=== PATIENT | female | born 1970 | race Two or more races ===

== ENCOUNTER 2016-09-07 13:19 | Emergency (ER) | payer OTHER ==
[2016-09-07 13:53] VITALS: BP 109/66; PULSE 77; RESP 16; TEMP 98.2; O2SAT 98
[2016-09-07 14:21] LABS: COLOR ORANGE; LEUKOCYTE ESTERASE,URINE TRACE (NEGATIVE); NITRITE,URINE POSITIVE (NEGATIVE)
[2016-09-07 14:31] LABS: BACTERIA TRACE /hpf (NONE SEEN); RENAL EPITHELIAL CELLS OCCASIONAL /hpf (NONE SEEN); WBC,URINE 0-1 /hpf (0-3)
--- NOTE | 2016-09-07 15:04 | UCPHY ---
H & P Time Seen by Provider: 09/07/16 15:04 Patient Type: New HPI/ROS: HPI: 45-year-old female presents to urgent care with chief concern urinary burning or frequency. Symptoms initially onset 1 week ago. Worsened significantly last night. Reports subjective fever. Denies chills, myalgias, back or flank pain nausea or vomiting, or hematuria. Has used Pyridium over-the -counter, as well as cranberry juice with some improvement. ROS:10 point review of systems is negative other than as stated in HPI Smoking Status: Never smoked Physical Exam: Temp 36.8, heart rate 77, respiratory rate 16, blood pressure 109/66, 98% on room air Head: Normalocephalic HEENT: Unremarkable. Atraumatic. PEERLA/EOMI. Neck: Supple, nontender, no lymphadenopathy Resp: Lungs CTA bilaterally. Breath sounds equal bilaterally. CV: HRR. S1S2. No MRG. ABD: Soft, nontender. Bowel sounds normoactive x 4 quadrants. : No CVA or flank tenderness. Extremities: Full ROM all extremities Neuro: Alert, oriented x 3. No focal deficits. Mental Status: Interactive, appropriate, well-groomed. Constitutional: Initial Vital Signs Temperature (C) 36.8 C 09/07/16 13:51 Heart Rate 77 09/07/16 13:51 Respiratory Rate 16 09/07/16 13:51 Blood Pressure 109/66 09/07/16 13:51 O2 Sat (%) 98 09/07/16 13:51 O2 Delivery Mode Room Air Allergies/Adverse Reactions: Sulfa (Sulfonamide Antibiotics) Allergy (Verified 09/07/16 13:50) Home Medications: Medication Instructions Recorded Effexor 09/07/16 Nitrofurantoin Monohyd/M-Cryst 100 mg PO BID #14 capsule 09/07/16 [Macrobid 100 mg Capsule] Medical Decision Making ED Course/Re-evaluation: Nontoxic afebrile 45-year-old presents to urgent care with dysuria. Urinalysis reveals nitrates and esterase. Urine cultures pending. She states that Macrobid has worked for her in the past for UTIs. She is prescribed 1 week twice daily Macrobid with strict instructions to return for recheck should symptoms worsen in any way. She has been counseled regarding symptoms for which to return. Differential Diagnosis: Cystitis versus pyelonephritis - Data Points Laboratory Results: 09/07/16 14:00 Urine Color ORANGE Urine Appearance HAZY Urine pH 5.0 (5.0-7.5) Ur Specific [place] <= 1.005 (1.002-1.030) Urine Protein 1+ H (NEGATIVE) Urine Ketones TRACE H (NEGATIVE) Urine Blood NEGATIVE (NEGATIVE) Urine Nitrate POSITIVE H (NEGATIVE) Urine Bilirubin NEGATIVE (NEGATIVE) Urine Urobilinogen 4.0 H EU (0.2-1.0) Ur Leukocyte Esterase TRACE H (NEGATIVE) Urine RBC 1-3 /hpf (0-3) Urine WBC 0-1 /hpf (0-3) Ur Epithelial Cells TRACE /lpf (NONE-1+) Ur Renal Epithelial Cell OCCASIONAL H /hpf (NONE SEEN) Urine Bacteria TRACE H /hpf (NONE SEEN) Urine Glucose TRACE H (NEGATIVE) Departure - Departure Disposition: Home, Routine, Self-Care Clinical Impression: Urinary tract infection Qualifiers: Urinary tract infection type: acute cystitis Condition: Good Instructions: Urinary Tract Infection in Women (ED) Additional Instructions: Plan: You have a urinary tract infection. Drink plenty of fluids. Take the Macrobid antibiotic twice daily for 1 week. Urostat or Azo-Standard available [id number] as needed for bladder spasm and pain Return if high fever, flank pain, nausea or vomiting, or feeling worse. Return if no improvement in symptoms in 48 hours. follow up with primary care next week Prescriptions: Nitrofurantoin Monohyd/M-Cryst [Macrobid 100 mg Capsule] 100 mg PO BID #14 capsule - PQRS PQRS Measurement: Not applicable
== END 2016-09-07 15:20 | disposition home or self-care (01) ==
LOC: CED 13:19
DX: N39.0 Urinary tract infection, site not specified (principal); Z88.2 Allergy status to sulfonamides
CPT/HCPCS: 81003-PO; 81015-PO; 99203-PO; G0463-PO

== ENCOUNTER 2017-06-10 08:18 | Observation (INO) | payer OTHER ==
[2017-06-10] MEDS ORDERED: ACETAMINOPHEN 500 MG TAB PO ONE (08:53)
[2017-06-10] MEDS ORDERED: THROMBIN (BOVINE) 5,000 UNIT VIAL TP ONE (08:53)
[2017-06-10] MEDS ORDERED: BUPIVACAINE 0.25% 30 ML SDV ONE (08:53)
[2017-06-10] MEDS ORDERED: ceFAZolin 2 GM/DEXTROSE 100 ML IV ONE (08:53)
[2017-06-10] MEDS ORDERED: GABAPENTIN 300 MG CAP PO ONE (08:53)
[2017-06-10] MEDS ORDERED: BACITRACIN 50,000 UNITS/10 ML SYR IRR ONE (08:54)
[2017-06-10] MEDS ORDERED: LR 1,000 ML IV ONE (08:54)
--- NOTE | 2017-06-10 09:33 | PDHPUP ---
History & Physical Update H&P update statement: This history and physical update is based on an assessment of the patient which was completed after admission or registration (within 24 hours), but prior to the surgery/procedure. H&P update: H&P reviewed & patient examined, no change in patient's condition since H&P completed (Consents signed and site marked. All questions answered.)
[2017-06-10 09:42] LABS: % IMMATURE GRANULYOCYTES 0.9 % (0.0-1.1); ABSOLUTE IMMATURE GRANULOCYTES 0.06 10^3/uL (0.00-0.10); ADD DIFF? NO; ADD MORPH? NO; ADD SCAN? NO; ATYPICAL LYMPHOCYTE FLAG 0 (0-99); FRAGMENT RBC FLAG 0 (0-99); HEMATOCRIT 43.6 % (38.0-47.0); HEMOGLOBIN 14.7 g/dL (12.6-16.3); LEFT SHIFT FLG 0 (0-99); LIPEMIA HEMOLYSIS FLAG 80 (0-99); MEAN CELL HEMOGLOBIN 30.9 pg (27.9-34.1); MEAN CELL HEMOGLOBIN CONCENTR. 33.7 g/dL (32.4-36.7); MEAN CELL VOLUME 91.6 fL (81.5-99.8); PLATELET CLUMPS FLAG 0 (0-99); PLATELET COUNT 170 10^3/uL (150-400); RED BLOOD CELL COUNT 4.76 10^6/uL (4.18-5.33); RED CELL DISTRIBUTION WIDTH 12.4 % (11.5-15.2)
[2017-06-10] MEDS ORDERED: MIDAZOLAM 2 MG/2 ML VIAL ONE (09:50)
[2017-06-10] MEDS ORDERED: SCOPOLAMINE HYDROBROMIDE 1 MG/3 DAYS PATCH TD ONE (10:00)
--- NOTE | 2017-06-10 10:06 | PDANEPAE ---
ANE History of Present Illness ACD and F 5-7 ANE Past Medical History - Cardiovascular History Hx Hypertension: No Hx Arrhythmias: No Hx Chest Pain: No Hx Coronary Artery / Peripheral Vascular Disease: No Hx CHF / Valvular Disease: No Hx Palpitations: No - Pulmonary History Hx COPD: No Hx Asthma/Reactive Airway Disease: No Hx Recent Upper Respiratory Infection: No Hx Oxygen in Use at Home: No Hx Sleep Apnea: No Sleep Apnea Screening Result - Last Documented: Negative - Neurologic History Hx Cerebrovascular Accident: No Hx Seizures: No Hx Dementia: No Neurologic History Comment: [facility] 2001. numbness and tingling to bilateral legs - Endocrine History Hx Diabetes: No Hypothyroid: No Hyperthyroid: No Obesity: no - Renal History Hx Renal Disorders: No - Liver History Hx Hepatic Disorders: No - Neurological & Psychiatric Hx Hx Neurological and Psychiatric Disorders: No Neurological / Psychiatric History Comment: hx of situational depression- doing well now - Cancer History Hx Cancer: No - Congenital Disorder History Hx Congenital Disorders: No - GI History Hx Gastrointestinal Disorders: No - Other Health History Other Health History: bruises easily - Chronic Pain History Chronic Pain: Yes (low back pain) - Surgical History Prior Surgeries: hysterectomy 2004/2005ish. bilateral carpal tunnel 2008 & 2016 ANE Review of Systems Review of Systems: - Exercise capacity METS (RN): 4 METS ANE Patient History - Allergies Allergies/Adverse Reactions: acetaminophen [From [facility]] Allergy (Verified 06/09/17 10:32) Itching hydrocodone [From [facility]] Allergy (Verified 06/09/17 10:32) Itching Sulfa (Sulfonamide Antibiotics) Allergy (Verified 06/09/17 12:19) Vomiting - Home Medications Home Medications: Venlafaxine Xr [Effexor Xr 75MG (*)] 150 mg PO DAILY 09/07/16 [Last Taken ] Ibuprofen [Motrin (*)] 200 mg PO DAILY PRN 06/09/17 [Last Taken 06/03/17] - NPO status NPO Since - Liquids (Date): 06/10/17 NPO Since - Liquids (Time): 06:00 NPO Since - Solids (Date): 06/09/17 NPO Since - Solids (Time): 22:00 - Anes Hx Anes Hx: no prior problems - Smoking Hx Smoking Status: Never smoked Marijuana use: No - Alcohol Use Alcohol Use: Rarely (Puesdocholinesterase def) - Family Anes Hx Family Hx Anesthesia Complications: mother and sister- PCD as well ANE Labs/Vital Signs - Labs Result Diagrams: 06/10/17 09:27 - Vital Signs Blood Pressure: 103/73 Heart Rate: 80 Respiratory Rate: 14 O2 Sat (%): 98 Height: 162.56 cm Weight: 53.524 kg ANE Physical Exam - Airway Neck exam: FROM Mallampati Score: Class 1 Mouth exam: normal dental/mouth exam - Pulmonary Pulmonary: no respiratory distress - Cardiovascular Cardiovascular: regular rate and rhythym, no murmur, rub, or gallop - ASA Status ASA Status: II ANE Anesthesia Plan Anesthesia Plan: general endotracheal anesthesia
[2017-06-10] MEDS ORDERED: fentaNYL 100 MCG/2 ML INJ ONE ×2 (10:11)
[2017-06-10] MEDS ORDERED: PROPOFOL/EMULSION 500 MG/50 ML BOTTLE IV ONE (10:11)
[2017-06-10] MEDS ORDERED: GLYCOPYRROLATE 0.2 MG/1 ML VIAL ONE (10:12)
[2017-06-10] MEDS ORDERED: DEXAMETHASONE 4 MG/ML VIAL ONE (10:12)
[2017-06-10] MEDS ORDERED: LIDOCAINE 2% 5 ML SDV ONE (10:12)
[2017-06-10] MEDS ORDERED: ROCURONIUM 50 MG/5 ML VIAL ONE (10:12)
[2017-06-10] MEDS ORDERED: SCOPOLAMINE HYDROBROMIDE 1 MG/3 DAYS PATCH TD SCH (10:15)
[2017-06-10] MEDS ORDERED: PROPOFOL 200 MG/20 ML VIAL ONE (10:45)
[2017-06-10] MEDS ORDERED: HYDROmorphONE/DILAUDID 2 MG/ML INJ ONE (12:11)
[2017-06-10] MEDS ORDERED: MAGNESIUM HYDROXIDE 30 ML UDCUP PO PRN (12:45)
[2017-06-10] MEDS ORDERED: ONDANSETRON DISINTEGRATING 4 MG TAB PO PRN (12:45)
[2017-06-10] MEDS ORDERED: diphenhydrAMINE 25 MG CAP PO PRN (12:45)
[2017-06-10] MEDS ORDERED: NS W/ 20 KCl/L 1,000 ML IV SCH (12:45)
[2017-06-10] MEDS ORDERED: HYDROmorphONE/DILAUDID 1 MG/ML INJ IVP PRN ×2 (12:45→12:49)
[2017-06-10] MEDS ORDERED: DIAZEPAM 10 MG/2 ML SYR IVP PRN (12:45)
[2017-06-10] MEDS ORDERED: POLYETHYLENE GLYCOL 3350 17 GM PKT PO PRN (12:45)
[2017-06-10] MEDS ORDERED: BISACODYL 10 MG SUPP PR PRN (12:45)
[2017-06-10] MEDS ORDERED: ONDANSETRON 4 MG/2 ML VIAL IVP PRN ×2 (12:45→12:49)
[2017-06-10] MEDS ORDERED: LACTULOSE 20 GM/30 ML UDCUP PO PRN (12:45)
[2017-06-10] MEDS ORDERED: DIAZEPAM 5 MG TAB PO PRN (12:45)
[2017-06-10] MEDS ORDERED: oxyCODONE IR 5 MG TAB PO PRN (12:45)
[2017-06-10] MEDS ORDERED: fentaNYL 100 MCG/2 ML INJ IVP PRN (12:49)
[2017-06-10] MEDS ORDERED: LR 500 ML IV PRN (12:49)
[2017-06-10] MEDS ORDERED: NALOXONE HCL 0.4 MG/ML INJ IVP PRN (12:49)
[2017-06-10] MEDS ORDERED: PROMETHAZINE HCL 25 MG/ML INJ IVP PRN (12:49)
[2017-06-10] MEDS ORDERED: OXYCODONE/APAP 5/325 TAB PO PRN (12:49)
--- NOTE | 2017-06-10 13:03 | POSTOPPROG ---
Post Op Note Date of Operation: 06/10/17 Surgeon: Chauncey Wang Finish Repair Worker: Laquita Sloan PA-C Anesthesiologist: Johnathon Anesthesia: GET(General Endotracheal) Pre-op Diagnosis: cervical stenosis Post-op Diagnosis: same Indication: radiculopathy, stenosis Procedure: C5-7 ACDF Findings: Please see dictation Inf/Abcess present in the surg proc area at time of surgery?: No Depth: Organ Space EBL: Minimal Total fluids administered: 850cc Complications: none Specimen(s): none PA Addendum - Addendum .: S: Pt in PACU, denies pain. States tingling/numbess slightly improved. O: Sleepy but awakens easily NAD VSS MAEx4 Motor 5/5 BUE, 5/5 BLE - poor effort BLE Incision dressed cdi C collar on A: 46 yo F s/p C5/6/7 ACDF P: PT/OT/STOCK MOVER Pain management C collar Post op xrays pending TEDs, SCDs, lovenox POD#3 D/w Dr Wang Call NS with any issues
[2017-06-10] MEDS ORDERED: DIAZEPAM 10 MG/2 ML SYR ONE (13:21)
--- NOTE | 2017-06-10 15:14 | GOP ---
[f rep st] OPERATIVE REPORT DATE OF OPERATION: 06/10/2017 SURGEON: Chauncey Wang MD BUFFING AND POLISHING WHEEL REPAIRER: Mamie Sloan PA-C. ANESTHESIA: General. PREOPERATIVE DIAGNOSIS: 1. C5-6 hernia nucleus pulposus with left upper extremity radiculopathy and weakness. 2. C6-C7 cervical spondylosis. 3. Treatment refractory to nonoperative intervention. POSTOPERATIVE DIAGNOSIS: 1. C5-6 hernia nucleus pulposus with left upper extremity radiculopathy and weakness. 2. C6-C7 cervical spondylosis. 3. Treatment refractory to nonoperative intervention. PROCEDURE PERFORMED: 1. Anterior arthrodesis with approach to C5, C6, C7. 2. C5-C6 diskectomy with bilateral foraminotomies, osteophytectomies and interbody fusion using a 7 x 14 x 11 mm titanium-coated PEEK cage with morselized autograft. 3. C6-C7 diskectomy with bilateral foraminotomies, osteophytectomies and interbody fusion using a 7 x 14 x 11 mm titanium-coated PEEK cage with morselized autograft and allograft. 4. Anterior cervical fusion C5, C6, C7 with a 35 mm Medtronic Kinnelon translational plate. 5. Use of intraoperative fluoroscopy, less than 1 hour physician time. 6. Use of neuromonitoring. 7. Use of the operating microscope. FINDINGS: per imaging SPECIMENS: None. ESTIMATED BLOOD LOSS: 30 mL. 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 Imaging demonstrated a large disk herniation C5-C6, with cervical spondylosis and C6-C7 moderate stenosis. After failing nonoperative interventions, and after discussion of risks, benefits, and treatment alternatives, we decided to proceed forth with surgery as described above. DESCRIPTION OF PROCEDURE: Patient was brought to the operating theater and underwent general endotracheal anesthesia without complication. She had Venodyne, KATE hose and the appropriate lines placed by Anesthesia. She was maintained supine on the operating table in slight extension. Using lateral fluoroscopy and a spinal needle, we picked our entry point to the C4 through C7 levels. This was marked as a transverse incision on the right side of her neck. This area was prepped and draped in the usual sterile surgical fashion. A time-out was completed per protocol. The patient received antibiotics within 1 hour of incision. The incision was taken down initially with a scalpel blade and, using monopolar , taken down through subcutaneous tissue to the level of the platysma. The platysma was over-mined in the cranial and caudal directions. A Weitlaner was placed to maintain our exposure. We opened the fibers of the platysma cranially and caudally. Using both blunt and sharp dissection, we traveled on a plane medial to the carotid sheath and lateral to the esophagus and trachea to reach the prevertebral fascia. We placed a bayonetted needle into the disk space of C5-C6 and confirmed our level using lateral fluoroscopy. We elevated the longus coli muscle from the anterior vertebral bodies of C5, C6, and C7 and deep retractors placed to maintain our exposure. The microscope was brought into the field to assist with microscopic dissection and to maintain illumination and magnification. We first proceeded up to C5-C6 where we placed a Nora pin into the vertebral body of C5 and C6 and placed C5-C6 into mild distraction. We completed a C5-C6 diskectomy with bilateral foraminotomies and osteophytectomies. She had a large subligamentous disk herniation which we teased out with angled nerve hooks. Once we felt that everything was well decompressed, we obtained hemostasis. We prepared the cartilaginous endplates and measured interbody space. We then placed a 7 x 14 x 11 mm titanium-coated PEEK cage filled with morselized autograft into the C5-6 disk space. We removed the Nora pin from C5, and placed it into C7 and placed C6-C7 into mild distraction. We completed a C6-C7 diskectomy with bilateral foraminotomies and osteophytectomies. We prepared the cartilaginous endplates and measured the interbody space. We then placed a 7 x 14 x 11 mm titanium-coated PEEK cage with morselized autograft and allograft into the C6-C7 disk space. We removed the Nora pins and drilled down the anterior osteophytes from C5, C6 and C7. We then secured a 35 mm Medtronic Kinnelon translational plate onto the vertebral bodies of C5, C6, and C7. AP and lateral x-rays demonstrated good placement of the hardware. We irrigated the wound copiously with bacitracin irrigation and closed it in multiple layers using Vicryl sutures to deep layers and Dermabond for the skin. The patient's wounds were dressed sterilely. She was then awakened, extubated and taken to the recovery room in stable condition. There were no complications and no noted changes on neuromonitoring throughout the procedure. COMPLICATIONS: None. /[id number]/MODL MTDD
[2017-06-10] MEDS: ACETAMINOPHEN 500 MG TAB PO SCH (16:53)
[2017-06-10 17:29] VITALS: RESP 16
[2017-06-10] MEDS: ceFAZolin 2 GM/DEXTROSE 100 ML IV SCH (18:32)
[2017-06-10] MEDS: FAMOTIDINE 20 MG TAB PO SCH (20:01)
[2017-06-10] MEDS: SENNOSIDES/DOCUSATE SODIUM TAB PO SCH (20:01)
[2017-06-11] MEDS: SENNOSIDES/DOCUSATE SODIUM TAB PO SCH ×2 (00:26→10:08)
[2017-06-11] MEDS: ceFAZolin 2 GM/DEXTROSE 100 ML IV SCH (01:46)
[2017-06-11] MEDS: ACETAMINOPHEN 500 MG TAB PO SCH ×2 (01:46→05:38)
[2017-06-11 07:58] VITALS: TEMP 98.6
--- NOTE | 2017-06-11 08:01 | SOAPPROG ---
SOAP Progress Note Assessment/Plan: Assessment: POD #1 s/p C5-7 ACDF Doing well Swallowing ok Symptoms improved Post op xrays look good Plan: PT/OT/ST today. Once cleared the DC home today in hard collar 06/11/17 07:57 Subjective: awake, alert, pain controlled. She states she has no further tingling in her knees or arm, has some residual paresthesias in her lateral hands and understands this may take time to improve. Denies any new or worsened symptoms. Swallowing ok Objective: Vital Signs Temp Pulse Resp BP Pulse Ox 36.9 C 80 16 101/65 94 06/11/17 04:00 06/11/17 04:00 06/11/17 04:00 06/11/17 04:00 06/11/17 04:00 Laboratory Results 06/10/17 09:27 06/10/17 06/11/17 06/12/17 05:59 05:59 05:59 Intake Total 850 Output Total 20 Balance 830 Dressing: CDI Neuro: MOREJON, Sens +LT ICD10 Worksheet Patient Problems: Problems Problem Status Onset Cervical stenosis of spinal canal Acute - ICD10 Problem Qualifiers (1) Cervical stenosis of spinal canal
[2017-06-11] MEDS ORDERED: VENLAFAXINE XR 75 MG CAP PO SCH (09:00)
[2017-06-11] MEDS: FAMOTIDINE 20 MG TAB PO SCH (10:07)
[2017-06-11 11:41] VITALS: BP 103/71; PULSE 65; O2SAT 97
[2017-06-11] MEDS ORDERED: FLU VACC QS 2017-18 (3YR+)/PF 0.5 ML SYR (FLUARIX QUAD) IM ONE (11:53)
--- NOTE | 2017-06-11 12:25 | POSTANESTH ---
Post Anesthetic Evaluation Cardiovascular Status: Normal, Stable Respiratory Status: Normal, Stable Level of Consciousness/Mental Status: Can Participate in Eval Pain Control: Adequate, Prn Tx Ordered Nausea/Vomiting Control: Adequate, Prn Tx Ordered Complications Possibly Related to Anesthesia: None Noted
--- NOTE | 2017-06-11 13:30 | ASDISCHSUM ---
Discharge Information Plan Status:Home with No Needs Medically Cleared to Leave: Discharge Date:06/11/2017 12:38 PM CM D/C Disposition:Home, Routine, Self-Care ADT D/C Disposition:Home, Routine, Self-Care Projected Discharge Date:06/11/2017 12:38 PM Transportation at D/C: Discharge Delay Reason: Follow-Up Date:06/11/2017 12:38 PM Discharge Slot: Final Diagnosis: Placement Information Patient Contact Information Contact Name:BRIEN Relationship: Address:[address] [place] [address] Work Phone: City:[place] Alternate Phone: State/Zip Code:[place] [address] Email: Financial Information Financial Class:[employer] [employer] Primary Plan Desc:[employer] HMO OPEN [employer] LOCAL Primary Plan Number:[id number] Secondary Plan Desc: Secondary Plan Number: Assessment Information Intervention Information
[2017-06-13] MEDS ORDERED: ENOXAPARIN 40 MG/0.4 ML SYR SC SCH (09:00)
[2017-06-13] MEDS ORDERED: PATCH REMOVAL 1 EA PATCH TD SCH (10:03)
== END 2017-06-11 12:38 | disposition home or self-care (01) ==
LOC: F3N 08:18
PROVIDERS: ADMIT Neurological Surgery; ATTEND Neurological Surgery
DX: M48.02 Spinal stenosis, cervical region (principal); M50.222 Other cervical disc displacement at C5-C6 level; M54.12 Radiculopathy, cervical region; M43.02 Spondylolysis, cervical region; M50.022 Cervical disc disorder at C5-C6 level with myelopathy; M50.023 Cervical disc disorder at C6-C7 level with myelopathy; R53.1 Weakness; F41.9 Anxiety disorder, unspecified; R21 Rash and other nonspecific skin eruption; Z23 Encounter for immunization
CPT/HCPCS: 20936; 22551; 22552; 22845; 72040; 76001; 90471; 92610; 97161; 97165; G0378; C1713; G0008; J0171; J0690; J1100; J1170; J2250; J2704; J3010